=== PATIENT | male | born 1985 | race Caucasian/White ===

== ENCOUNTER 2017-06-29 14:08 | Emergency (ER) | payer SELFPAY ==
--- NOTE | ~2017-06-29 | CR93 ---
[facility]. 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 Ordering Physician: Katina Callejas A.P.R.N. Primary Care Physician: Primary Care Physician No MEDICAL IMAGING REPORT This report is preliminary unless electronic signature is present. EXAM Left elbow 06/29 INDICATIONS Laceration after a piece of metal fell on arm at work today. Swelling. FINDINGS 3 views of the left elbow were obtained. There is no fracture or malalignment. There are no radiopaque foreign bodies. IMPRESSION Negative left elbow. Dictated by... Saul Lock Jr., M.D. THIS IS AN ELECTRONICALLY VERIFIED REPORT Saul Lock Jr., M.D. at 06/30/2017 4:32 PM RLK/berny TD: 06/29/2017 18:12 JOB #: [id number] MEDICAL IMAGING REPORT Page 1 of 1
[~2017-06-29 14:08] MED LIST: ACULAR10 ML OS; BACTRIM DS TABL1 TA2 PO; ERYTHROMYCIN O3.5 GM OS; HYDROCODON-ACE1 EAC7 PO; TYLENOL #3 PO; VOLTAREN75 MG PO; [UNRECOGNIZED DRUG - REMARK]
== END 2017-06-29 16:18 | disposition home or self-care (01) ==
LOC: SED 14:08
DX: S50.02XA Contusion of left elbow, initial encounter (principal); W20.8XXA Other cause of strike by thrown, projected or falling object, initial encounter; Y92.69 Other specified industrial and construction area as the place of occurrence of the external cause; Y93.89 Activity, other specified; Y99.0 Civilian activity done for income or pay
CPT/HCPCS: 73080; 90471; 90715; 99283